=== PATIENT | female | born 1945 | race Caucasian/White ===

== ENCOUNTER 2023-08-04 23:03 | Inpatient (IN) | payer MEDICARE, MEDICAID ==
[~2023-08-04] VITALS: Ht 167.6 cm; Wt 56.8 kg
[~2023-08-04 23:03] MED LIST: ACET-1008 PO; ALBU18HF2 IH; APIX5TAB3 PO; ATOR40TA72 PO; BISA10SU60 RC; BUDE10.22; BUDE10.22 IH; CALC625T PO; CARV-50 PO; CARV25TA PO; CEFD300C3 PO; CHOL100046 PO; CHOL50002 PO; DAPA10TA PO; DIGO125T PO; DOCU100C40 PO; FERR-116 PO; FERR325T28 PO; GABA-530 PO; HYDR-3972 PO; IPRA3AMP9 NEB; LACT1CAP86 PO; MAGN400O6 PO; MULT-1074 PO; NA P133E4 RC; NICO-687 TD; OMEP20TA43 PO; PANT-47 PO; SACU1TAB PO; SENN-302 PO; SPIR25TA PO
[2023-08-04 23:09] VITALS: PULSE 115; RESP 25; O2SAT 98
[2023-08-04 23:17] VITALS: PULSE 112; RESP 33; O2SAT 97
[2023-08-04 23:43] LABS: BASOPHILS # (AUTO) 0.1 X10'3 (0-0.2); BASOPHILS % (AUTO) 0.5 % (0-1); EOSINOPHILS % (AUTO) 0.2 % (0-6); HEMOGLOBIN 10.5 g/dl (12.0-16.0); LYMPHOCYTES # (AUTO) 1.3 X10'3 (1.1-4.8); LYMPHOCYTES % (AUTO) 11.8 % (21-51); MEAN CORPUSCULAR VOLUME 93.9 FL (78-98); MEAN PLATELET VOLUME 7.9 FL (7.4-10.4); MONOCYTES # (AUTO) 0.9 X10'3 (0-0.9); NEUTROPHILS # (AUTO) 8.5 X10'3 (1.8-7.7); NEUTROPHILS % (AUTO) 79.5 % (42-75); PLATELET COUNT 332 X10'3 (140-440); RED BLOOD COUNT 3.41 X10'6 (4.20-5.60); RED CELL DISTRIBUTION WIDTH 16.6 % (11.5-14.5); WHITE BLOOD COUNT 10.7 X10'3 (4.5-11.0)
[2023-08-04] MEDS: acetaminophen 650mg rectal suppository RC STA (23:46)
[2023-08-04] MEDS: oxyCODONE IR 5mg (immed. release) tablet PO ONE (23:47)
[2023-08-04] MEDS: normal saline 1000ML IV soln IVB ONE (23:47)
[2023-08-04] MEDS: piperacillin/tazo 3.375gm/50ml 50 ML IV ONE (23:49)
[2023-08-04] MEDS: ondansetron/PF 4mg/2ml inj IV ONE (23:49)
[2023-08-04 23:52] LABS: ALANINE AMINOTRANSFERASE 17 U/L (12-78); ALBUMIN 2.3 G/DL (3.4-5.0); ALBUMIN/GLOBULIN RATIO 0.4 (1.1-1.5); ALKALINE PHOSPHATASE 106 IU/L (46-116); ANION GAP 10 (8-16); ASPARTATE AMINO TRANSFERASE 19 U/L (10-37); BILIRUBIN,TOTAL 0.4 MG/DL (0.1-1.0); BLOOD UREA NITROGEN 15 MG/DL (7-18); BUN/CREATININE RATIO 11.7 (10.0-20.0); CALCIUM 9.3 MG/DL (8.5-10.1); CHLORIDE 99 MMOL/L (99-107); CREATININE 1.28 MG/DL (0.40-0.90); GLUCOSE 128 MG/DL (70-104); SODIUM 137 MMOL/L (135-145); TOTAL CARBON DIOXIDE 28.1 MMOL/L (24-32); TOTAL PROTEIN 7.6 G/DL (6.4-8.2); eCRCL 28 ML/MIN; eGFR 40 ML/MIN
[2023-08-04 23:56] LABS: DIGOXIN 1.7 NG/ML (0.9-1.9)
[2023-08-05] VITALS (23 sets, daily range): BP systolic 80–136; BP diastolic 31–72; PULSE 90–107; RESP 14–26; TEMP 97–98; O2SAT 88–99
[2023-08-05] MEDS ORDERED: NORepinephrine 8mg/ 250ml NS 250 ML IV PRN (01:00)
[2023-08-05] MEDS: LORazepam 2 mg/ml vial IV STA (01:59)
[2023-08-05] MEDS: normal saline 1000ML IV soln IVB ONE ×2 (02:42→02:43)
[2023-08-05] MEDS: albumin (Human) 5% 250ml 250 ML IV ONE ×2 (02:44→04:04)
[2023-08-05] MEDS ORDERED: acetaminophen 325mg tablet PO PRN (02:55)
[2023-08-05] MEDS ORDERED: magnesium hydroxide 30ml (MOM) UD suspension PO PRN (02:55)
[2023-08-05 03:25] LABS: BILIRUBIN,URINE NEGATIVE (Neg); CLARITY,URINE TURBID (Clear); COLOR,URINE STRAW (Yellow); GLUCOSE, URINE >=1000 mg/dl (Neg); KETONES,URINE NEGATIVE (Neg); LEUKOCYTE ESTERASE ,URINE MODERATE (Neg); NITRITES, URINE NEGATIVE (Neg); OCCULT BLOOD,URINE TRACE-INTACT (Neg); PROTEIN,URINE 30 mg/dl (Neg); UROBILINOGEN,URINE 0.2 E.U/dL (0.2-1.0)
[2023-08-05 03:49] LABS: UA COLLECTION TYPE FOLEY CATH
[2023-08-05 03:55] LABS: WBC,URINE TNTC /HPF (0-4)
[2023-08-05 04:02] LABS: BACTERIA,URINE NONE SEEN /HPF (Neg); MUCUS STRANDS NONE SEEN /LPF (Neg); RBC,URINE 0-2 /HPF (0-2); SQUAMOUS EPITHELIAL CELL,UR NONE SEEN /LPF (FEW)
[2023-08-05] MEDS: NORepinephrine 8mg/ 250ml NS 250 ML IV PRN (04:40)
[2023-08-05] MEDS: vancomycin/NS 1 GM ADD-VANTAGE 250 ML IV ONE (04:45)
[2023-08-05 06:15] LABS: ALANINE AMINOTRANSFERASE 12 U/L (12-78); ALBUMIN 2.5 G/DL (3.4-5.0); ALBUMIN/GLOBULIN RATIO 0.6 (1.1-1.5); ALKALINE PHOSPHATASE 77 IU/L (46-116); ANION GAP 7 (8-16); ASPARTATE AMINO TRANSFERASE 16 U/L (10-37); BILIRUBIN,TOTAL 0.6 MG/DL (0.1-1.0); BLOOD UREA NITROGEN 12 MG/DL (7-18); BUN/CREATININE RATIO 11.5 (10.0-20.0); CALCIUM 8.6 MG/DL (8.5-10.1); CHLORIDE 106 MMOL/L (99-107); CREATININE 1.04 MG/DL (0.40-0.90); GLUCOSE 128 MG/DL (70-104); POTASSIUM 3.9 MMOL/L (3.5-5.1); SODIUM 141 MMOL/L (135-145); TOTAL CARBON DIOXIDE 27.9 MMOL/L (24-32); TOTAL PROTEIN 6.6 G/DL (6.4-8.2); eCRCL 37 ML/MIN; eGFR 51 ML/MIN
[2023-08-05 06:21] LABS: BASOPHILS % (AUTO) 0.2 % (0-1); EOSINOPHILS % (AUTO) 0.1 % (0-6); HEMATOCRIT 25.4 % (35.0-45.0); HEMOGLOBIN 8.2 g/dl (12.0-16.0); LYMPHOCYTES # (AUTO) 1.4 X10'3 (1.1-4.8); MEAN CORPUSCULAR HEMOGLOBIN 30.8 PG (27.0-31.0); MEAN CORPUSCULAR HGB CONC 32.2 g/dL (33.0-36.5); MEAN CORPUSCULAR VOLUME 95.6 FL (78-98); MEAN PLATELET VOLUME 7.9 FL (7.4-10.4); MONOCYTES # (AUTO) 0.9 X10'3 (0-0.9); MONOCYTES % (AUTO) 9.3 % (2-12); NEUTROPHILS # (AUTO) 6.9 X10'3 (1.8-7.7); NEUTROPHILS % (AUTO) 75.4 % (42-75); PLATELET COUNT 291 X10'3 (140-440); RED BLOOD COUNT 2.65 X10'6 (4.20-5.60); RED CELL DISTRIBUTION WIDTH 16.4 % (11.5-14.5); WHITE BLOOD COUNT 9.2 X10'3 (4.5-11.0)
[2023-08-05 07:11] LABS: ABG BASE EXCESS -1.4 mmol/L (-2.0-2.0); ABG HCO3 23.1 mmol/L (22.0-26.0); ABG OXYGEN SATURATION 86.1 % (94-97); ABG PCO2 (T) 36.8 mmHg (32.0-45.0); ABG PH (T) 7.413 (7.350-7.450); ABG PO2 (T) 49.9 mmHg (75.0-100.0); ALLEN'S TEST POSITIVE; FCOHb 0.7 % (0.0-3.9); FHHb 13.8 % (0.0-5.0); FLOW 6 L/min; FMetHb 0.3 % (0.0-1.5); FO2Hb 85.2 % (94-97); MODE NASAL CANNULA; PATIENT TEMPERATURE 36.5; TOTAL HEMOGLOBIN 9.3 G/dl (12.0-16.0)
[2023-08-05] MEDS: piperacillin/tazo 3.375gm/50ml 50 ML IV SCH (07:22)
[2023-08-05] MEDS: methylPREDNISolone sod succ/PF 40mg inj. IV SCH (07:22)
[2023-08-05] MEDS: ringers solution, lacted 1,000 ML IV ONE (07:41)
[2023-08-05] MEDS: acetaminophen 325mg tablet PO PRN (08:21)
[2023-08-05] MEDS ORDERED: LORA-268 PO (08:35)
[2023-08-05] MEDS ORDERED: CARV6.257 PO (09:10)
[2023-08-05] MEDS ORDERED: FLUC200T12 PO (09:11)
[2023-08-05] MEDS ORDERED: FURO40TA4 PO (09:14)
[2023-08-05] MEDS ORDERED: LEVO750T68 PO (09:14)
[2023-08-05] MEDS ORDERED: MELA5CAP PO (09:16)
[2023-08-05] MEDS ORDERED: BUDE10.22 PO (09:16)
[2023-08-05] MEDS ORDERED: OMEP20CA16 PO (09:16)
[2023-08-05] MEDS ORDERED: MULT-1249 PO (09:16)
[2023-08-05] MEDS ORDERED: OSC500T PO (09:17)
[2023-08-05] MEDS ORDERED: VITA1CAP PO (09:18)
[2023-08-05] MEDS ORDERED: RIVA20TA PO (09:18)
[2023-08-05] MEDS ORDERED: ipratropium/albuterol 3ml nebule NEB PRN (11:25)
[2023-08-05] MEDS ORDERED: bisacodyl 10mg suppository rectal RC PRN (11:25)
[2023-08-05] MEDS: MULTIVIT-MIN/FERROUS GLUCONATE 9 MG/15 ML LIQUID PO SCH (11:42)
[2023-08-05] MEDS: lactose-reduced food (Ensure Enlive) - 237ml bottle PO SCH (13:23)
[2023-08-05] MEDS: HYDROcodone/acetaminophen 5mg/325mg tablet PO PRN (14:04)
[2023-08-05] MEDS: albuterol 2.5 MG/3 ML nebule NEB SCH (15:13)
[2023-08-05] MEDS: HYDROcodone/acetaminophen 10/325mg tab PO PRN (16:19)
[2023-08-05] MEDS: mag hydrox/Alum hydrox/simeth 30ml oral suspension PO PRN (16:20)
[2023-08-05] MEDS: docusate sod 100mg capsule PO SCH (19:48)
[2023-08-05] MEDS: carvedilol 6.25mg tablet PO SCH (19:48)
[2023-08-05] MEDS: enoxaparin 40mg/0.4ml syringe SQ SCH (19:50)
[2023-08-05] MEDS: budesonide 0.5mg/2ml UD nebule IH SCH (21:10)
[2023-08-05] MEDS ORDERED: albuterol 2.5 MG/3 ML nebule NEB PRN (21:30)
[2023-08-06] VITALS (27 sets, daily range): BP systolic 112–145; BP diastolic 40–78; PULSE 62–110; RESP 13–30; TEMP 97–98.2; O2SAT 79–99
[2023-08-06] MEDS: ipratropium/albuterol 3ml nebule NEB SCH (00:01)
[2023-08-06 06:53] LABS: BASOPHILS % (AUTO) 0.2 % (0-1); EOSINOPHILS % (AUTO) 0 % (0-6); HEMOGLOBIN 9.3 g/dl (12.0-16.0); LYMPHOCYTES # (AUTO) 0.6 X10'3 (1.1-4.8); LYMPHOCYTES % (AUTO) 9.4 % (21-51); MEAN CORPUSCULAR HEMOGLOBIN 31.3 PG (27.0-31.0); MEAN CORPUSCULAR HGB CONC 33.4 g/dL (33.0-36.5); MEAN CORPUSCULAR VOLUME 93.7 FL (78-98); MEAN PLATELET VOLUME 7.8 FL (7.4-10.4); MONOCYTES # (AUTO) 0.3 X10'3 (0-0.9); NEUTROPHILS # (AUTO) 5.3 X10'3 (1.8-7.7); NEUTROPHILS % (AUTO) 85.4 % (42-75); PLATELET COUNT 305 X10'3 (140-440); RED BLOOD COUNT 2.98 X10'6 (4.20-5.60); RED CELL DISTRIBUTION WIDTH 16.3 % (11.5-14.5); WHITE BLOOD COUNT 6.2 X10'3 (4.5-11.0)
[2023-08-06 06:56] LABS: ALBUMIN 2.4 G/DL (3.4-5.0); ANION GAP 8 (8-16); BLOOD UREA NITROGEN 12 MG/DL (7-18); BUN/CREATININE RATIO 13.8 (10.0-20.0); CALCIUM 8.8 MG/DL (8.5-10.1); CHLORIDE 106 MMOL/L (99-107); CREATININE 0.87 MG/DL (0.40-0.90); GLUCOSE 128 MG/DL (70-104); POTASSIUM 3.5 MMOL/L (3.5-5.1); SODIUM 139 MMOL/L (135-145); TOTAL CARBON DIOXIDE 25.3 MMOL/L (24-32); eCRCL 46 ML/MIN; eGFR 63 ML/MIN
[2023-08-06] MEDS ORDERED: MULTIVITAMIN PO SCH (08:00)
[2023-08-06] MEDS: ferrous sulfate 325mg tablet PO SCH (08:46)
[2023-08-06] MEDS: sacubitril/valsartan 24mg-26mg tablet PO SCH (08:47)
[2023-08-06] MEDS: rivaroxaban 20mg tablet PO SCH (08:48)
[2023-08-06] MEDS: digoxin 125mcg (0.125mg) tablet PO SCH (08:48)
[2023-08-06] MEDS: fluconazole 100mg tablet PO SCH (08:48)
[2023-08-07] VITALS (20 sets, daily range): BP systolic 114–132; BP diastolic 43–74; PULSE 91–111; RESP 14–22; TEMP 97.6–98.1; O2SAT 85–100
[2023-08-07] MEDS ORDERED: vancomycin inj 500 MG in normal saline 100ml IV soln 100 ML IV SCH (05:00)
[2023-08-07] MEDS: ondansetron/PF 4mg/2ml inj IV PRN (08:02)
[2023-08-07 10:56] LABS: HEMATOCRIT 34.2 % (35.0-45.0); HEMOGLOBIN 11.2 g/dl (12.0-16.0); LYMPHOCYTES % (AUTO) 6.3 % (21-51); MEAN CORPUSCULAR HEMOGLOBIN 31.6 PG (27.0-31.0); MEAN CORPUSCULAR HGB CONC 32.7 g/dL (33.0-36.5); MEAN CORPUSCULAR VOLUME 96.6 FL (78-98); NEUTROPHILS % (AUTO) 88.2 % (42-75); PLATELET COUNT 407 X10'3 (140-440); RED BLOOD COUNT 3.53 X10'6 (4.20-5.60); RED CELL DISTRIBUTION WIDTH 17.2 % (11.5-14.5); WHITE BLOOD COUNT 8.6 X10'3 (4.5-11.0)
[2023-08-07 10:57] LABS: BASOPHILS % (AUTO) 0.5 % (0-1); EOSINOPHILS % (AUTO) 0 % (0-6); LYMPHOCYTES # (AUTO) 0.5 X10'3 (1.1-4.8); MONOCYTES # (AUTO) 0.4 X10'3 (0-0.9); NEUTROPHILS # (AUTO) 7.6 X10'3 (1.8-7.7)
[2023-08-07 11:04] LABS: ALBUMIN 2.4 G/DL (3.4-5.0); ANION GAP 10 (8-16); BLOOD UREA NITROGEN 21 MG/DL (7-18); CALCIUM 9.4 MG/DL (8.5-10.1); CHLORIDE 108 MMOL/L (99-107); GLUCOSE 186 MG/DL (70-104); POTASSIUM 3.3 MMOL/L (3.5-5.1); SODIUM 144 MMOL/L (135-145); TOTAL CARBON DIOXIDE 26.2 MMOL/L (24-32); eCRCL 40 ML/MIN; eGFR 53 ML/MIN
[2023-08-07] MEDS ORDERED: amiodarone 150mg/dext, iso-os 100 ML IV ONE (12:00)
[2023-08-07] MEDS ORDERED: magnesium Cl slow-release 64mg tablet PO PRN (20:20)
[2023-08-07] MEDS ORDERED: magnesium 2GM in 50ml NS 50 ML IV PRN (20:20)
[2023-08-07] MEDS ORDERED: potassium Cl 20 mEq SR tablet PO PRN (20:20)
[2023-08-07] MEDS ORDERED: magnesium 4gm in 100ml NS 100 ML IV PRN (20:20)
[2023-08-07] MEDS ORDERED: potassium Cl 40MEQ/1/2NS 520ml 520 ML IV PRN (20:20)
[2023-08-07] MEDS: potassium Cl 20 mEq SR tablet PO PRN (20:42)
[2023-08-08] VITALS (20 sets, daily range): BP systolic 98–155; BP diastolic 49–78; PULSE 79–108; RESP 14–26; TEMP 97.4–98.4; O2SAT 81–99
[2023-08-08] MEDS: K and/or MAG REPLACEMENT MC SCH (08:00)
[2023-08-08 08:34] LABS: BASOPHILS % (AUTO) 0.2 % (0-1); EOSINOPHILS % (AUTO) 0 % (0-6); HEMATOCRIT 33.3 % (35.0-45.0); HEMOGLOBIN 10.8 g/dl (12.0-16.0); LYMPHOCYTES % (AUTO) 7.1 % (21-51); MEAN CORPUSCULAR HEMOGLOBIN 30.8 PG (27.0-31.0); MEAN CORPUSCULAR HGB CONC 32.6 g/dL (33.0-36.5); MEAN CORPUSCULAR VOLUME 94.5 FL (78-98); MEAN PLATELET VOLUME 7.9 FL (7.4-10.4); MONOCYTES % (AUTO) 6.7 % (2-12); PLATELET COUNT 369 X10'3 (140-440); RED BLOOD COUNT 3.52 X10'6 (4.20-5.60); RED CELL DISTRIBUTION WIDTH 16.3 % (11.5-14.5)
[2023-08-08 08:35] LABS: LYMPHOCYTES # (AUTO) 0.6 X10'3 (1.1-4.8); MONOCYTES # (AUTO) 0.5 X10'3 (0-0.9); NEUTROPHILS # (AUTO) 6.9 X10'3 (1.8-7.7)
[2023-08-08 12:13] LABS: ALBUMIN 2.6 G/DL (3.4-5.0); ANION GAP 11 (8-16); BLOOD UREA NITROGEN 20 MG/DL (7-18); BUN/CREATININE RATIO 24.7 (10.0-20.0); CALCIUM 9.6 MG/DL (8.5-10.1); CHLORIDE 106 MMOL/L (99-107); CREATININE 0.81 MG/DL (0.40-0.90); GLUCOSE 166 MG/DL (70-104); MAGNESIUM 2.5 MG/DL (1.5-2.4); SODIUM 144 MMOL/L (135-145); TOTAL CARBON DIOXIDE 26.8 MMOL/L (24-32); eCRCL 50 ML/MIN; eGFR 68 ML/MIN
[2023-08-08 12:14] LABS: POTASSIUM 3.9 MMOL/L (3.5-5.1)
[2023-08-08] MEDS: rivaroxaban 20mg tablet PO SCH (18:04)
[2023-08-09] VITALS (12 sets, daily range): BP systolic 94–150; BP diastolic 38–74; PULSE 74–96; RESP 16–20; TEMP 97.4–97.8; O2SAT 84–96
[2023-08-09 08:11] LABS: BASOPHILS % (AUTO) 0.1 % (0-1); EOSINOPHILS % (AUTO) 0 % (0-6); HEMATOCRIT 34.6 % (35.0-45.0); HEMOGLOBIN 11.2 g/dl (12.0-16.0); LYMPHOCYTES # (AUTO) 0.7 X10'3 (1.1-4.8); LYMPHOCYTES % (AUTO) 8.1 % (21-51); MEAN CORPUSCULAR HEMOGLOBIN 30.2 PG (27.0-31.0); MEAN CORPUSCULAR HGB CONC 32.2 g/dL (33.0-36.5); MEAN CORPUSCULAR VOLUME 93.7 FL (78-98); MEAN PLATELET VOLUME 7.5 FL (7.4-10.4); MONOCYTES # (AUTO) 0.5 X10'3 (0-0.9); MONOCYTES % (AUTO) 5.5 % (2-12); NEUTROPHILS # (AUTO) 7.7 X10'3 (1.8-7.7); NEUTROPHILS % (AUTO) 86.3 % (42-75); PLATELET COUNT 418 X10'3 (140-440); RED BLOOD COUNT 3.69 X10'6 (4.20-5.60); RED CELL DISTRIBUTION WIDTH 16.2 % (11.5-14.5); WHITE BLOOD COUNT 8.9 X10'3 (4.5-11.0)
[2023-08-09 08:24] LABS: ALBUMIN 2.5 G/DL (3.4-5.0); ANION GAP 7 (8-16); BLOOD UREA NITROGEN 22 MG/DL (7-18); BUN/CREATININE RATIO 26.8 (10.0-20.0); CALCIUM 9.2 MG/DL (8.5-10.1); CHLORIDE 102 MMOL/L (99-107); CREATININE 0.82 MG/DL (0.40-0.90); GLUCOSE 139 MG/DL (70-104); MAGNESIUM 2.2 MG/DL (1.5-2.4); POTASSIUM 3.8 MMOL/L (3.5-5.1); SODIUM 138 MMOL/L (135-145); TOTAL CARBON DIOXIDE 28.7 MMOL/L (24-32); eCRCL 49 ML/MIN; eGFR 67 ML/MIN
== END 2023-08-09 16:45 | DRG 871 ==
LOC: ER 23:04 → ED HOLD 08-05 03:06 → CICU 2S 08-05 04:24 → PCU 3S 08-05 12:22
PROVIDERS: ADMIT Internal Medicine Critical Care Medicine; ATTEND Family Medicine
PROC: 5A09357 Assistance with Respiratory Ventilation, Less than 24 Consecutive Hours, Continuous Positive Airway Pressure (ICD-10-PCS; principal; 2023-08-04)
PROC: 5A09357 Assistance with Respiratory Ventilation, Less than 24 Consecutive Hours, Continuous Positive Airway Pressure (ICD-10-PCS; 2023-08-05)
PROC: 5A0935A Assistance with Respiratory Ventilation, Less than 24 Consecutive Hours, High Flow/Velocity Cannula (ICD-10-PCS; 2023-08-05)
PROC: 5A0935A Assistance with Respiratory Ventilation, Less than 24 Consecutive Hours, High Flow/Velocity Cannula (ICD-10-PCS; 2023-08-06)
PROC: 5A0935A Assistance with Respiratory Ventilation, Less than 24 Consecutive Hours, High Flow/Velocity Cannula (ICD-10-PCS; 2023-08-07)
DX: A41.9 Sepsis, unspecified organism (principal); J18.9 Pneumonia, unspecified organism; J69.0 Pneumonitis due to inhalation of food and vomit; J96.22 Acute and chronic respiratory failure with hypercapnia; R65.21 Severe sepsis with septic shock; J44.1 Chronic obstructive pulmonary disease with (acute) exacerbation; I13.0 Hypertensive heart and chronic kidney disease with heart failure and stage 1 through stage 4 chronic kidney disease, or unspecified chronic kidney disease; R64 Cachexia; I50.32 Chronic diastolic (congestive) heart failure; I48.20 Chronic atrial fibrillation, unspecified; E87.6 Hypokalemia; Z66 Do not resuscitate; F03.90 Unspecified dementia, unspecified severity, without behavioral disturbance, psychotic disturbance, mood disturbance, and anxiety; F41.9 Anxiety disorder, unspecified; K21.9 Gastro-esophageal reflux disease without esophagitis; E78.00 Pure hypercholesterolemia, unspecified; E11.42 Type 2 diabetes mellitus with diabetic polyneuropathy; E11.22 Type 2 diabetes mellitus with diabetic chronic kidney disease; Z20.822 Contact with and (suspected) exposure to COVID-19; N18.9 Chronic kidney disease, unspecified; G89.29 Other chronic pain; Z86.711 Personal history of pulmonary embolism; Z86.73 Personal history of transient ischemic attack (TIA), and cerebral infarction without residual deficits; Z80.1 Family history of malignant neoplasm of trachea, bronchus and lung; Z87.01 Personal history of pneumonia (recurrent); Z88.5 Allergy status to narcotic agent; Z79.899 Other long term (current) drug therapy; Z68.20 Body mass index [BMI] 20.0-20.9, adult
CPT/HCPCS: 36415; 36556; 36600; 71045; 71250; 80048; 80053; 80162; 81001; 82803; 83605; 83735; 84145; 84484; 85018; 85025; 86885; 86900; 86901; 87040; 87081; 87088; 87502; 87503; 87811; 93005; 94640; 94660; 94760; 96365; 96367; 96375; 97116; 97161; 97530; 99291; A4615; A6213; A6250; A6258; A6449; A6455; C1751; C1758; G0378; J1650; J2060; J2405; J2543; J2920; J3370; J7030; J7040; J7120; P9045